=== PATIENT | female | born 1975 | race Caucasian/White ===

== ENCOUNTER 2019-03-03 10:16 | Day surgery (SDC) | payer OTHER ==
[~2019-03-03] VITALS: Ht 154.9 cm; Wt 61.8 kg
[2019-03-03 10:53] VITALS: BP 125/86
== END 2019-03-03 17:50 | disposition home or self-care (01) ==
LOC: OUT 10:16
PROVIDERS: ATTEND Obstetrics & Gynecology
DX: N84.0 Polyp of corpus uteri (principal); I10 Essential (primary) hypertension; Z79.899 Other long term (current) drug therapy; Z91.041 Radiographic dye allergy status; Z98.51 Tubal ligation status
CPT/HCPCS: 58558; 81025; 88305; J1100; J1885; J2250; J2405; J2704; J3010; J0690